=== PATIENT | female | born 1945 | race Caucasian/White ===

== ENCOUNTER → 2023-06-03 08:10 | Outpatient (REF) | payer OTHER, SELFPAY ==
[2023-06-03 12:23] LABS: ALT (SGPT) 19 U/L (0-35); AST (SGOT) 25 U/L (14-36); HDL Cholesterol 72 mg/dl; LDL Cholesterol, Calculated 45 mg/dl; Total Cholesterol 132 mg/dl (50-199); Triglyceride 79 mg/dl (10-149); Very Low Density Lipoprotein 15 mg/dl (0-30)
== END ==
LOC: HWLAB 08:10
PROVIDERS: ATTENDING PHYSICIAN Internal Medicine; FAMILY PHYSICIAN Family Medicine
DX: I70.0 Atherosclerosis of aorta (principal)
CPT/HCPCS: 36415; 80061; 84450; 84460

== ENCOUNTER → 2023-09-26 08:13 | Outpatient (REF) | payer OTHER, SELFPAY ==
[2023-09-26 10:52] LABS: Blood Urea Nitrogen 29 mg/dl (7-17); Calcium 9.1 mg/dl (8.4-10.2); Carbon Dioxide 29 mmol/L (22-30); Chloride 103 mmol/L (98-107); Glucose 98 mg/dl (70-99); Potassium 3.6 mmol/L (3.5-5.1); Sodium 140 mmol/L (135-145); eGFR > 60.00
== END ==
LOC: HWLAB 08:13
PROVIDERS: ATTENDING PHYSICIAN Internal Medicine Gastroenterology; FAMILY PHYSICIAN Family Medicine
DX: K86.2 Cyst of pancreas (principal)
CPT/HCPCS: 36415; 80048

== ENCOUNTER → 2023-10-16 10:38 | Outpatient (REF) | payer OTHER, SELFPAY | LOC: MRI 3T 10:38 | PROVIDERS: ATTENDING PHYSICIAN Internal Medicine Gastroenterology; FAMILY PHYSICIAN Family Medicine | DX: K86.2 Cyst of pancreas (principal) | CPT/HCPCS: 74183; A9575 ==

== ENCOUNTER → 2023-10-21 06:25 | Day surgery (SDC) | payer OTHER, SELFPAY | LOC: GI 06:25 | PROVIDERS: ATTENDING PHYSICIAN Internal Medicine Gastroenterology; FAMILY PHYSICIAN Family Medicine | DX: K44.9 Diaphragmatic hernia without obstruction or gangrene (principal); K31.7 Polyp of stomach and duodenum; K31.89 Other diseases of stomach and duodenum; R13.10 Dysphagia, unspecified | CPT/HCPCS: 43239; 88305 ==

== ENCOUNTER → 2023-11-19 08:31 | Outpatient (REF) | payer OTHER, SELFPAY ==
[2023-11-19 10:13] LABS: HDL Cholesterol 66 mg/dl; LDL Cholesterol, Calculated 107 mg/dl; Total Cholesterol 192 mg/dl (50-199); Triglyceride 95 mg/dl (10-149); Very Low Density Lipoprotein 19 mg/dl (0-30)
== END ==
LOC: HWLAB 08:31
PROVIDERS: ATTENDING PHYSICIAN Internal Medicine; FAMILY PHYSICIAN Family Medicine
DX: I70.0 Atherosclerosis of aorta (principal)
CPT/HCPCS: 36415; 80061

== ENCOUNTER → 2023-12-03 09:58 | Outpatient (REF) | payer OTHER, SELFPAY ==
[2023-12-03 14:37] LABS: Free T4 1.59 ng/dl (0.78-2.19)
[2023-12-03 14:51] LABS: TSH 0.86 uIU/ml (0.47-4.68)
[2023-12-04 22:21] LABS: Thyroglobulin <0.1 ng/mL (1.3-31.8); Thyroglobulin Antibodies <0.9 IU/mL (0.0-4.0)
== END ==
LOC: HWLAB 09:58
PROVIDERS: ATTENDING PHYSICIAN Internal Medicine Endocrinology, Diabetes & Metabolism; FAMILY PHYSICIAN Family Medicine
DX: E03.2 Hypothyroidism due to medicaments and other exogenous substances (principal)
CPT/HCPCS: 36415; 84432; 84439; 84443; 86800

== ENCOUNTER → 2023-12-11 09:18 | Outpatient (REF) | payer OTHER, SELFPAY | LOC: HWRAD 09:18 | PROVIDERS: ATTENDING PHYSICIAN Surgery Vascular Surgery; FAMILY PHYSICIAN Family Medicine | DX: I72.8 Aneurysm of other specified arteries (principal) | CPT/HCPCS: 74174; Q9967 ==

== ENCOUNTER → 2024-03-04 08:04 | Outpatient (REF) | payer OTHER, SELFPAY ==
[2024-03-04 09:46] LABS: ALT (SGPT) 17 U/L (0-35); AST (SGOT) 25 U/L (14-36); HDL Cholesterol 72 mg/dl; LDL Cholesterol, Calculated 82 mg/dl; Total Cholesterol 172 mg/dl (50-199); Triglyceride 91 mg/dl (10-149); Very Low Density Lipoprotein 18 mg/dl (0-30)
== END ==
LOC: HWLAB 08:04
PROVIDERS: ATTENDING PHYSICIAN Internal Medicine; FAMILY PHYSICIAN Family Medicine
DX: I70.0 Atherosclerosis of aorta (principal)
CPT/HCPCS: 36415; 80061; 84450; 84460

== ENCOUNTER → 2024-07-27 09:17 | Outpatient (REF) | payer OTHER, SELFPAY | LOC: RAD 09:17 | PROVIDERS: ATTENDING PHYSICIAN Family Medicine | DX: R05.1 Acute cough (principal); J01.00 Acute maxillary sinusitis, unspecified; J22 Unspecified acute lower respiratory infection | CPT/HCPCS: 71046 ==

== ENCOUNTER → 2024-09-16 09:56 | Outpatient (REF) | payer OTHER, SELFPAY | LOC: RAD 09:56 | PROVIDERS: ATTENDING PHYSICIAN Internal Medicine Hematology & Oncology; FAMILY PHYSICIAN Family Medicine | DX: I72.8 Aneurysm of other specified arteries (principal) | CPT/HCPCS: 71250 ==

== ENCOUNTER → 2024-10-02 14:32 | Outpatient (REF) | payer OTHER, SELFPAY | LOC: RAD 14:32 | PROVIDERS: ATTENDING PHYSICIAN Family Medicine; FAMILY PHYSICIAN Internal Medicine Hematology & Oncology | DX: M85.859 Other specified disorders of bone density and structure, unspecified thigh (principal) | CPT/HCPCS: 77080 ==

== ENCOUNTER → 2024-10-16 13:25 | Outpatient (REF) | payer OTHER, SELFPAY | LOC: MRI 3T 13:25 | PROVIDERS: ATTENDING PHYSICIAN Internal Medicine Gastroenterology; FAMILY PHYSICIAN Family Medicine | DX: K86.2 Cyst of pancreas (principal) | CPT/HCPCS: 74183; A9575 ==

== ENCOUNTER → 2024-11-16 08:45 | Outpatient (REF) | payer OTHER, SELFPAY | LOC: RAD 08:45 | PROVIDERS: ATTENDING PHYSICIAN Internal Medicine Gastroenterology; FAMILY PHYSICIAN Family Medicine | DX: R10.13 Epigastric pain (principal) | CPT/HCPCS: 74221 ==

== ENCOUNTER → 2024-12-14 08:14 | Outpatient (REF) | payer OTHER, SELFPAY ==
[2024-12-14 09:50] LABS: Hematocrit 32.9 % (37.0-47.0); Hemoglobin 11.3 g/dL (12.0-16.0); Mean Corp Hgb Conc. 34.3 g/dL (33.0-37.0); Mean Corpuscular Volume 96.2 fL (81.0-99.0); Nucleated Red Blood Cells % 0 %; Platelet Count 262 10^3/uL (130-400); Red Cell Dist. Width 13.3 % (11.5-14.5)
[2024-12-14 09:54] LABS: Urine Character Clear (Clear)
[2024-12-14 10:06] LABS: Urine Red Blood Cell 0-2 /HPF (0-2); Urine Squamous Cell 0-2 /LPF (Few)
[2024-12-14 10:13] LABS: Vitamin D, 25-OH*** 72.2 ng/mL (30-80)
[2024-12-14 10:20] LABS: ALT (SGPT) 21 U/L (0-35); AST (SGOT) 22 U/L (14-36); Albumin 4.0 g/dl (3.5-5.0); Alkaline Phosphatase 57 U/L (38-126); Blood Urea Nitrogen 21 mg/dl (7-17); Calcium 8.7 mg/dl (8.4-10.2); Carbon Dioxide 31 mmol/L (22-30); Chloride 104 mmol/L (98-107); Glucose 89 mg/dl (70-99); HDL Cholesterol 68 mg/dl; LDL Cholesterol, Calculated 67 mg/dl; Potassium 3.9 mmol/L (3.5-5.1); Sodium 141 mmol/L (135-145); Total Protein 6.2 g/dl (6.3-8.2); Very Low Density Lipoprotein 11 mg/dl (0-30); eGFR > 60.00
[2024-12-14 10:26] LABS: TSH 1.14 uIU/ml (0.47-4.68)
== END ==
LOC: HWLAB 08:14
PROVIDERS: ATTENDING PHYSICIAN Internal Medicine Endocrinology, Diabetes & Metabolism; FAMILY PHYSICIAN Family Medicine
DX: E03.2 Hypothyroidism due to medicaments and other exogenous substances (principal); K44.9 Diaphragmatic hernia without obstruction or gangrene; Z85.3 Personal history of malignant neoplasm of breast; Z79.899 Other long term (current) drug therapy
CPT/HCPCS: 36415; 80053; 80061; 81003; 81015; 82306; 84439; 84443; 85025

== ENCOUNTER → 2025-03-09 13:47 | Outpatient (REF) | payer OTHER, SELFPAY ==
[2025-03-09 15:23] LABS: Hematocrit 31.1 % (37.0-47.0); Hemoglobin 11.0 g/dL (12.0-16.0); Mean Corp Hgb Conc. 35.4 g/dL (33.0-37.0); Mean Corpuscular Volume 99.0 fL (81.0-99.0); Nucleated Red Blood Cells % 0 %; Platelet Count 250 10^3/uL (130-400); Red Cell Dist. Width 13.2 % (11.5-14.5)
[2025-03-11 12:25] LABS: Lyme Antibody Screen, EIA Negative (Negative)
== END ==
LOC: HWLAB 13:47
PROVIDERS: ATTENDING PHYSICIAN Nurse Practitioner Family
DX: M79.18 Myalgia, other site (principal); M54.2 Cervicalgia
CPT/HCPCS: 36415; 72052; 85025; 85652; 86618

== ENCOUNTER → 2025-03-17 14:38 | Outpatient (REF) | payer OTHER, SELFPAY | LOC: CPAP 14:38 | PROVIDERS: ATTENDING PHYSICIAN Nurse Practitioner Family | DX: Z01.419 Encounter for gynecological examination (general) (routine) without abnormal findings (principal) | CPT/HCPCS: G0123 ==